=== PATIENT | male | born 1975 | race Caucasian/White ===

== ENCOUNTER 2019-06-11 14:09 | Emergency (ER) | payer SELFPAY ==
[~2019-06-11] VITALS: Ht 170.2 cm; Wt 99.8 kg
[2019-06-11 14:14] VITALS: BP 160/106
--- NOTE | 2019-06-11 14:28 | NUR ---
DR MOTTA AT BEDSIDE EVALAUTING PT.
--- NOTE | 2019-06-11 14:33 | NUR ---
C/O RIGHT EAR PAIN X 5 DAYS, RIGHT FACE NUMBNESS X TODAY.PT AWAKE ,ALERT, AFIBRILE ,AMBULATORY WITH STEADY GAIT, RT FACIAL ASSYMMETRY NO OTHER NEUROLOGIC DEFICIT NOTED.MOTOR 07/23 . MED HX: DENIES
[2019-06-11 14:47] VITALS: BP 160/106
--- NOTE | 2019-06-11 14:47 | NUR ---
Patient discharged with v/s stable. Written and verbal after care instructions given and explained. Patient alert, oriented and verbalized understanding of instructions. Ambulatory with steady gait. All questions addressed prior to discharge. ID band removed. Patient advised to follow up with PMD. Rx of PREDNISONE, ACYCLOVIR given. Patient educated on indication of medication including possible reaction and side effects. Opportunity to ask questions provided and answered.
== END 2019-06-11 14:47 | disposition home or self-care (01) ==
LOC: MED 14:09
DX: G51.0 Bell's palsy (principal)
CPT/HCPCS: 99283

== ENCOUNTER 2021-05-26 11:00 | Emergency (ER) | payer SELFPAY ==
[~2021-05-26] VITALS: Ht 170.2 cm; Wt 86.2 kg
[2021-05-26 11:09] VITALS: BP 149/106
--- NOTE | 2021-05-26 11:37 | NUR ---
ANIMAL BITE REPORT SENT
--- NOTE | 2021-05-26 12:07 | NUR ---
PT AMBULATED TO BED
--- NOTE | 2021-05-26 12:20 | NUR ---
45 y/o male, c/o dog bite 2 hours ago. pt states pitbull mix breed bit pt to sacral area and rt lac. bleeidng controlled at this time. upon assessment, pt has partial thickness on lower right leg below buttocks and right calve area. states pain is 5/10 sore sensation at this time. ambulates with even and steady gait. no tetanus vaccines med: denies nka pmh: denies
[2021-05-26] MEDS: ACETAMINOPHEN 325 MG TAB PO ONE (13:30)
[2021-05-26] MEDS ORDERED: BACITRACIN OINT 500 UNITS/GM PKT TP ONE (13:53)
[2021-05-26 14:10] VITALS: BP 149/106
--- NOTE | 2021-05-26 14:10 | NUR ---
Patient discharged with v/s stable. Written and verbal after care instructions given and explained. Patient alert, oriented and verbalized understanding of instructions. Ambulatory with steady gait. All questions addressed prior to discharge. ID band removed. Patient advised to follow up with PMD. Rx of augmentin (script) given. Patient educated on indication of medication including possible reaction and side effects. Opportunity to ask questions provided and answered.
== END 2021-05-26 14:10 | disposition home or self-care (01) ==
LOC: MED 11:00
DX: S82.851A Displaced trimalleolar fracture of right lower leg, initial encounter for closed fracture (principal); W54.0XXA Bitten by dog, initial encounter; Y93.89 Activity, other specified; Y92.89 Other specified places as the place of occurrence of the external cause; Y99.8 Other external cause status
CPT/HCPCS: 73590; 90471; 90715; 99283; Q0092

== ENCOUNTER 2021-05-27 10:53 | Emergency (ER) | payer SELFPAY ==
[~2021-05-27] VITALS: Ht 170.2 cm; Wt 86.2 kg
[2021-05-27 11:11] VITALS: BP 141/88
--- NOTE | 2021-05-27 11:54 | NUR ---
45/M BIB SELF, AA&OX4, AMBULATORY W/ STEADY GAIT; PRESENTS TO ED FOR WOUND RE CHECK S/P DOG BITE TO R CALF. PATIENT WAS SEEN IN ED YESTERDAY 05/26/21 FOR EVALUATION. PATIENT DENIES ANY DISCHARGE OR DRAINAGE FROM WOUND, -N/V/CP, SOB, FEVER, CHILLS. PATIENT STATES PAIN IS ONLY PRESENT UPON PALPATION, NON RADIATING, 2/10. MEDS: DENIES PMH: DENIES NKA
--- NOTE | 2021-05-27 12:10 | NUR ---
45/M BIB SELF FOR WOUND RECHECK. STATES HE WAS SEEN HERE YESTERDAY S/P DOG BITE TO RIGHT CALF. PATIENT STATES HE WANTS TO ENSURE BITE IS NOT INFECTED. DENIES FEVERS, CHILLS, DRAINAGE OR OTHER SIGNS OF INFECTION. PATIENT REPORTS 2/10 MILD PAIN.
--- NOTE | 2021-05-27 12:13 | NUR ---
PA GRADY EVALUATING PATIENT AT BEDSIDE.
[2021-05-27] MEDS ORDERED: BACITRACIN OINT 500 UNITS/GM PKT TP ONE (12:15)
[2021-05-27 12:44] VITALS: BP 141/88
--- NOTE | 2021-05-27 12:44 | NUR ---
Patient discharged with v/s stable. Written and verbal after care instructions ABOUT WOUND CARE AND ANIMAL BITE given and explained. Patient verbalized understanding. Ambulatory with steady gait. All questions addressed prior to discharge. Advised to follow up with PMD.
== END 2021-05-27 12:44 | disposition home or self-care (01) ==
LOC: MED 10:53
DX: S81.851A Open bite, right lower leg, initial encounter (principal); R03.0 Elevated blood-pressure reading, without diagnosis of hypertension; W54.0XXA Bitten by dog, initial encounter; Y93.89 Activity, other specified; Y92.89 Other specified places as the place of occurrence of the external cause; Y99.8 Other external cause status
CPT/HCPCS: 99282